=== PATIENT | female | born 1980 | race Two or more races ===

== ENCOUNTER 2018-12-21 21:28 | Emergency (ER) | payer SELFPAY ==
[~2018-12-21] VITALS: Ht 167.6 cm; Wt 83.0 kg
[2018-12-21 21:56] VITALS: BP 182/100
[2018-12-21 22:13] LABS: BASO % 0 % (0-3); EOS % 1 % (0-3); HEMOGLOBIN 11.4 g/dL (12.0-15.5); LYMPH # 1.8 x10^3/uL (1.0-4.8); LYMPH % 22 % (24-48); MEAN CORPUSCULAR HEMOGLOBIN 25 pg (25-35); MEAN CORPUSCULAR HGB CONC 33 g/dL (31-37); MEAN CORPUSCULAR VOLUME 75 fL (79-100); MONO # 0.4 x10^3/uL (0.0-1.1); MONO % 6 % (0-9); NEUT # 5.7 x10^3uL (1.8-7.7); NEUT % 71 % (31-73); PLATELET COUNT 228 x10^3/uL (140-400); RED BLOOD COUNT 4.66 x10^6/uL (3.50-5.40); RED CELL DISTRIBUTION WIDTH 15.6 % (11.5-14.5)
[2018-12-21] MEDS ORDERED: IV NORMAL SALINE 1000ML BAG 1,000 ML IV ONE (22:15)
[2018-12-21 22:21] LABS: CALCIUM 8.6 mg/dL (8.5-10.1); CREATININE 0.6 mg/dL (0.6-1.0); GFR 112.5; POTASSIUM 3.7 mmol/L (3.5-5.1)
[2018-12-21 22:27] LABS: ALBUMIN 3.7 g/dL (3.4-5.0); ALBUMIN/GLOBULIN RATIO 0.8 (1.0-1.7); TOTAL BILIRUBIN 0.5 mg/dL (0.2-1.0); TOTAL PROTEIN 8.3 g/dL (6.4-8.2)
[2018-12-21] MEDS ORDERED: ONDANSETRON PF 4 MG/2 ML VIAL. IV ONE (22:30)
[2018-12-21] MEDS ORDERED: MORPHINE SULFATE 4 MG/ML VIAL. IV ONE (22:30)
--- NOTE | 2018-12-21 22:31 | PHYS DOC ---
Past Medical History Past Medical History: Gallstones Past Surgical History: No Surgical History Alcohol Use: Rarely Drug Use: None Adult General Chief Complaint Chief Complaint: ABDOMINAL PAIN HPI HPI Patient is a 38 year old female presenting with abdominal pain she feels in the periumbilical area radiates to the right upper quadrant. It starts after eating she has struggled with gallstones for 2 years ago told her she might need her gallbladder out 6 months ago but she has not followed up the pain is increased after eating it is dull slowly worsening with time he really started to get worse sometime earlier today. Positive nausea no vomiting no pain with urination no fever she has been constipated Review of Systems Review of Systems Constitutional: Denies fever or chills [] Eyes: Denies change in visual acuity, redness, or eye pain [] HENT: Denies nasal congestion or sore throat [] Respiratory: Denies cough or shortness of breath [] Cardiovascular: : Denies dysuria or hematuria [] Musculoskeletal: Denies back pain or joint pain [] Integument: Denies rash or skin lesions [] Neurologic: Denies headache, focal weakness or sensory changes [] Endocrine: Denies polyuria or polydipsia [] All other systems were reviewed and found to be within normal limits, except as documented in this note. Current Medications Current Medications Current Medications Medications (Trade) Dose Ordered Sig/Herminia Start Time Stop Time Status Last Admin Dose Admin Info (CONTRAST GIVEN -- Rx MONITORING) 1 each PRN DAILY PRN 12/21/18 23:45 12/22/18 01:05 DC Iohexol (Omnipaque 300 Mg/ml) 75 ml 1X ONCE 12/22/18 00:30 12/22/18 00:31 DC 12/22/18 00:06 75 ML Morphine Sulfate (Morphine Sulfate) 4 mg 1X ONCE 12/21/18 22:30 12/21/18 22:31 DC 12/21/18 23:09 4 MG Ondansetron HCl (Zofran) 4 mg 1X ONCE 12/21/18 22:30 12/21/18 22:31 DC 12/21/18 23:10 4 MG Sodium Chloride 1,000 ml @ 1,000 mls/hr 1X ONCE 12/21/18 22:15 12/21/18 23:14 DC 12/21/18 22:15 1,000 MLS/HR Allergies Allergies Allergies Coded Allergies Type Severity Reaction Last Updated Verified No Known Drug Allergies 12/21/18 No Physical Exam Physical Exam Constitutional: Well developed, well nourished, no acute distress, non-toxic appearance. [] HENT: Normocephalic, atraumatic, bilateral external ears normal, oropharynx moist, no oral exudates, nose normal. [] Eyes: PERRLA, EOMI, conjunctiva normal, no discharge. [] Neck: Normal range of motion, no tenderness, supple, no stridor. [] Cardiovascular:Heart rate regular rhythm, no murmur [] Lungs & Thorax: Bilateral breath sounds clear to auscultation [] Abdomen: Bowel sounds normal, soft, right upper quadrant and left upper quadrant tenderness. Skin: Warm, dry, no erythema, no rash. [] Back: No tenderness, no CVA tenderness. [] Extremities: No tenderness, no cyanosis, no clubbing, ROM intact, no edema. [] Neurologic: Alert and oriented X 3, normal motor function, normal sensory function, no focal deficits noted. [] Psychologic: Affect normal, judgement normal, mood normal. [] Current Patient Data Vital Signs Vital Signs Date Time Temp Pulse Resp B/P (MAP) Pulse Ox O2 Delivery O2 Flow Rate FiO2 12/21/18 23:09 18 100 Room Air 12/21/18 21:56 98.8 69 182/100 (127) 98.8 Lab Values Laboratory Tests Test 12/21/18 22:03 12/21/18 23:10 White Blood Count 8.0 x10^3/uL (4.0-11.0) Red Blood Count 4.66 x10^6/uL (3.50-5.40) Hemoglobin 11.4 g/dL (12.0-15.5) L Hematocrit 35.0 % (36.0-47.0) L Mean Corpuscular Volume 75 fL (79-100) L Mean Corpuscular Hemoglobin 25 pg (25-35) Mean Corpuscular Hemoglobin Concent 33 g/dL (31-37) Red Cell Distribution Width 15.6 % (11.5-14.5) H Platelet Count 228 x10^3/uL (140-400) Neutrophils (%) (Auto) 71 % (31-73) Lymphocytes (%) (Auto) 22 % (24-48) L Monocytes (%) (Auto) 6 % (0-9) Eosinophils (%) (Auto) 1 % (0-3) Basophils (%) (Auto) 0 % (0-3) Neutrophils # (Auto) 5.7 x10^3uL (1.8-7.7) Lymphocytes # (Auto) 1.8 x10^3/uL (1.0-4.8) Monocytes # (Auto) 0.4 x10^3/uL (0.0-1.1) Eosinophils # (Auto) 0.0 x10^3/uL (0.0-0.7) Basophils # (Auto) 0.0 x10^3/uL (0.0-0.2) Sodium Level 138 mmol/L (136-145) Potassium Level 3.7 mmol/L (3.5-5.1) Chloride Level 102 mmol/L (98-107) Carbon Dioxide Level 26 mmol/L (21-32) Anion Gap 10 (6-14) Blood Urea Nitrogen 9 mg/dL (7-20) Creatinine 0.6 mg/dL (0.6-1.0) Estimated GFR (Cockcroft-Gault) 112.5 BUN/Creatinine Ratio 15 (6-20) Glucose Level 102 mg/dL (70-99) H Calcium Level 8.6 mg/dL (8.5-10.1) Total Bilirubin 0.5 mg/dL (0.2-1.0) Aspartate Amino Transferase (AST) 22 U/L (15-37) Alanine Aminotransferase (ALT) 34 U/L (14-59) Alkaline Phosphatase 126 U/L (46-116) H Troponin I Quantitative < 0.017 ng/mL (0.000-0.055) Total Protein 8.3 g/dL (6.4-8.2) H Albumin 3.7 g/dL (3.4-5.0) Albumin/Globulin Ratio 0.8 (1.0-1.7) L Lipase 125 U/L (73-393) Urine Collection Type Unknown Urine Color Yellow Urine Clarity Clear Urine pH 7.0 Urine Specific Powell <=1.005 Urine Protein Negative mg/dL (NEG-TRACE) Urine Glucose (UA) Negative mg/dL (NEG) Urine Ketones (Stick) Negative mg/dL (NEG) Urine Blood Negative (NEG) Urine Nitrite Negative (NEG) Urine Bilirubin Negative (NEG) Urine Urobilinogen Dipstick 0.2 mg/dL (0.2 mg/dL) Urine Leukocyte Esterase Negative (NEG) Urine RBC Occ /HPF (0-2) Urine WBC Occ /HPF (0-4) Urine Squamous Epithelial Cells Few /LPF Urine Bacteria 0 /HPF (0-FEW) Laboratory Tests 12/21/18 22:03 Laboratory Tests 12/21/18 22:03 EKG EKG [] Interpretation Time: Normal sinus rhythm rate of 71 no acute ischemic changes noted interpreted by me the time of encounter. Radiology/Procedures Radiology/Procedures [] IMPRESSION: 1. Moderate colon stool volume. Small bowel feces sign of the distal ileum suggests stasis. Correlate for constipation. 2. There is no acute abdominal or pelvic abnormality. The appendix is normal. Electronically signed by: Genaro Marina MD (12/22/2018 12:25 AM) [facility] DICTATED and SIGNED BY: GENARO MARINA MD DATE: 12/22/18 0025 Impressions: IMPRESSION: 1. Marginal thickening of the gallbladder wall. 2. No gallstones noted. 3. Normal common duct. 4. Poor visualization of the pancreas. Electronically signed by: Miguel Hallman MD (12/21/2018 11:16 PM) [facility] DICTATED and SIGNED BY: MIGUEL HALLMAN MD DATE: 12/21/18 2316 Course & Med Decision Making Course & Med Decision Making Pertinent Labs and Imaging studies reviewed. (See chart for details) []Initially concerned about biliary pathology ultrasound basically normal reevaluation of abdominal exam showed more right lower tenderness CT scan showed normal appendix evidence of constipation on CT also by history as well. I spoke with the mill tender phone with the patient plan for stool softener return precautions discussed Dragon Disclaimer Dragon Disclaimer This electronic medical record was generated, in whole or in part, using a voice recognition dictation system. Departure Departure Impression: Primary Impression: Constipation Disposition: 01 HOME, SELF-CARE Condition: STABLE Referrals: UNKNOWN PCP NAME (PCP) Scripts Polyethylene Glycol 3350 (MIRALAX) 17 Gm Powd.pack 1 PACKET PO DAILY, #30 PACKET 0 Refills Prov: TAMIKA ENCARNACION MD 12/22/18 TAMIKA ENCARNACION MD Dec 21, 2018 22:31
--- NOTE | 2018-12-21 23:19 | RAD ---
Ultrasound the abdomen limited. HISTORY: Right upper quadrant pain Ultrasound was used to evaluate the right upper quadrant of the abdomen. Mid body of the pancreas was normal, portions of the head and tail of the pancreas were obscured. Liver was within normal limits in size and appearance. Right kidney was 12.5 cm in length without a mass or hydronephrosis. There is a small right renal cyst. Common duct was normal measuring 4 mm. Gallbladder wall was mildly thickened measuring 3 to 4 mm. Gallstones were not identified. Hepatobiliary scan may be of benefit. IMPRESSION: 1. Marginal thickening of the gallbladder wall. 2. No gallstones noted. 3. Normal common duct. 4. Poor visualization of the pancreas. Electronically signed by: Miguel Hallman MD (12/21/2018 11:16 PM) [facility]
[2018-12-21 23:24] LABS: BILIRUBIN,URINE NEGATIVE (NEG); CLARITY,URINE CLEAR; COLOR,URINE YELLOW; NITRITE,URINE NEGATIVE (NEG); PROTEIN,URINE NEGATIVE (NEG-TRACE); UROBILINOGEN,URINE 0.2 mg/dL (0.2 mg/dL)
[2018-12-21 23:30] LABS: BACTERIA,URINE 0 /HPF (0-FEW); RBC,URINE OCC /HPF (0-2); SQUAMOUS EPITHELIAL CELL,UR FEW /LPF; WBC,URINE OCC /HPF (0-4)
[2018-12-21] MEDS ORDERED: CONTRAST GIVEN. MC PRN (23:45)
--- NOTE | 2018-12-22 00:28 | RAD ---
PQRS Compliance Statement: One or more of the following individualized dose reduction techniques were utilized for this examination: 1. Automated exposure control 2. Adjustment of the mA and/or kV according to patient size 3. Use of iterative reconstruction technique CT ABD PELV W/ IV CONTRST ONLY Clinical Indication: Right lower quadrant pain. Comparison: None. Technique: Helical CT imaging of the abdomen and pelvis is performed after 75 cc of Omnipaque 300 IV contrast. Oral contrast not given. Findings: Lung bases are clear. Cardiac size normal. Liver, gallbladder, spleen, pancreas, adrenal glands, abdominal aorta, and kidneys are normal. Stomach unremarkable. Tiny fat-containing umbilical hernia. No dilated small bowel. The appendix is normal. There is moderate colon stool volume. The proximal colon is distended with stool. There is small bowel feces sign of the distal ileum suggesting stasis. No colon wall thickening is identified. No abdominal adenopathy or free fluid. Urinary bladder is normal. Uterus and ovaries unremarkable. No pelvic free fluid. No acute bone abnormality. IMPRESSION: 1. Moderate colon stool volume. Small bowel feces sign of the distal ileum suggests stasis. Correlate for constipation. 2. There is no acute abdominal or pelvic abnormality. The appendix is normal. Electronically signed by: Genaro Marina MD (12/22/2018 12:25 AM) [facility]
[2018-12-22] MEDS ORDERED: IOHEXOL 300 MG/ML 100ML VIAL. IV ONE (00:30)
[2018-12-22] MEDS ORDERED: POLY17PO29 PO (00:38)
--- NOTE | 2018-12-22 12:06 | EKG ---
[facility] [address] [place] [address] Test Date: 2018-12-21 Test Time: 22:15:18 Pat Name: KEERTHI LE Department: Room: Gender: F Signals Officer: : 1980 Requested By: TAMIKA ENCARNACION Order Number: [id number] Reading MD: Measurements Intervals [place] Rate: 71 P: 14 MI: 156 QRS: -2 QRSD: 88 T: 7 QT: 380 QTc: 413 Interpretive Statements SINUS RHYTHM LEFTWARD AXIS OTHERWISE NORMAL ECG RI6.01 Unconfirmed report No previous ECG available for comparison
== END 2018-12-22 00:55 | disposition home or self-care (01) ==
LOC: ER 21:28
DX: K59.00 Constipation, unspecified (principal); R11.0 Nausea
CPT/HCPCS: 36415; 74177; 76705; 80053; 81001; 81025; 83690; 84484; 85025; 93005; 96374; 96375; 99285; J2270; J2405; J7030; Q9967

== ENCOUNTER → 2019-06-07 | Outpatient (CLI) | payer OTHER ==
[~2019-06-07] VITALS: Ht 154.9 cm; Wt 81.2 kg
[~2019-06-07] MED LIST: POLY17PO29 PO; SINCALIDE 1.6 MCG in IV NORMAL SALINE 50ML 30 ML IV ONE
--- NOTE | 2019-06-07 11:42 | RAD ---
HEPATOBILIARY SCAN WITH EJECTION FRACTION History: Abdominal pain. Comparison: Abdominal ultrasound and CT abdomen and pelvis with contrast December 21, 2018. Procedure: Serial static images are obtained of the liver and biliary system in the frontal projection following IV administration of 5.5 mCi of Technetium 99m Choletec. After filling of the gallbladder, 1.6 mcg of sincalide were infused over 15 minutes and dynamic imaging continued x30 minutes. The gallbladder ejection fraction was calculated. Findings: There is prompt hepatic clearance of tracer from the blood pool. There is relatively homogeneous distribution throughout the liver. Tracer in common bile duct is identified by 15 minutes. Tracer is seen in gallbladder beginning at 5 minutes. There is preferential filling of the gallbladder prior to the sincalide infusion, a normal variant. The gallbladder ejection fraction measures 15% (normal gallbladder EF is 35% or greater). IMPRESSION: 1. The cystic duct and common bile duct are patent. Negative for acute cholecystitis. 2. The gallbladder ejection fraction is abnormal measuring 15%. Findings may indicate gallbladder dyskinesia or chronic cholecystitis. Electronically signed by: Genaro Marina MD (06/07/2019 11:39 AM) [id number]
== END | disposition home or self-care (01) ==
LOC: NM 07:54
PROVIDERS: ATTEND Family Medicine
DX: R10.13 Epigastric pain (principal)
CPT/HCPCS: 78227; A9537; J2805